=== PATIENT | female | born 1945 ===

== ENCOUNTER 2018-05-27 13:34 | Outpatient (CLI) | payer MEDICARE, OTHER | END 2018-05-27 13:35 | disposition home or self-care (01) | LOC: C.RADIC 13:34 | DX: Z00.00 Encounter for general adult medical examination without abnormal findings (principal) ==

== ENCOUNTER 2018-05-30 15:20 | Outpatient (CLI) | payer MEDICARE, OTHER | END 2018-05-30 15:21 | disposition home or self-care (01) | LOC: C.DEXAIC 15:20 ==

== ENCOUNTER 2018-07-18 13:12 | Outpatient (CLI) | payer MEDICARE, OTHER | END 2018-07-18 13:13 | disposition home or self-care (01) | LOC: C.RADIC 13:12 ==